=== PATIENT | female | born 1945 | race Hispanic/Latino ===

== ENCOUNTER 2019-08-31 05:40 | Day surgery (SDC) | payer OTHER, MEDICARE ==
[2019-08-29 12:36] VITALS: BP 175/82
[2019-08-29 12:50] LABS: APPEARANCE,URINE Clear (CLEAR); BASOPHILS % (AUTO) 0.9 % (0.0-5.0); BILIRUBIN,URINE Negative (NEGATIVE); COLOR,URINE Yellow (YELLOW); EOSINOPHILS % (AUTO) 3.7 % (0.0-8.0); GLUCOSE, URINE (UA) Negative (NEGATIVE); HEMATOCRIT 39.2 % (36-48); KETONES,URINE Negative (NEGATIVE); LEUKOCYTE ESTERASE ,URINE Negative (NEGATIVE); LYMPHOCYTES % (AUTO) 29.2 % (21.0-51.0); MEAN CORPUSCULAR HEMOGLOBIN 30.3 pg (27.0-33.0); MEAN CORPUSCULAR HGB CONC 34.1 g/dL (32.0-36.0); MEAN CORPUSCULAR VOLUME 88.7 fL (79-99); MONOCYTES % (AUTO) 7.3 % (3.0-13.0); NEUTROPHILS % (AUTO) 58.9 % (40.0-77.0); NITRATE,URINE Negative (NEGATIVE); OCCULT BLOOD,URINE Negative (NEGATIVE); PLATELET COUNT (AUTO) 199 K/uL (130-400); PROTEIN,URINE POS 2+ mg/dL (NEGATIVE); RED BLOOD CELL COUNT(AUTO) 4.42 MIL/uL (4.00-5.50); RED CELL DISTRIBUTION WIDTH 12.9 % (11.0-15.5); WHITE BLOOD COUNT (AUTO) 7.4 K/uL (4.8-10.8)
[2019-08-29 12:59] LABS: CREATININE 1.5 mg/dL (0.5-1.5); POTASSIUM 3.9 mmol/L (3.5-5.1)
[2019-08-29 13:01] LABS: INR 0.98 (0.85-1.15); PROTHROMBIN TIME 10.3 SEC (9.6-11.6)
[2019-08-29 13:07] LABS: BACTERIA,URINE None Seen /HPF (None Seen); RBC,URINE None Seen /HPF (0-1); SQUAMOUS EPITHELIAL CELL,UR Rare /HPF (0-2); WBC,URINE None Seen /HPF (0-1)
[2019-08-29 15:45] VITALS: BP 140/74
--- NOTE | 2019-08-30 10:40 | NUR ---
ABNORMAL LABS PAGED DR. VISH SALAZAR' [employer] OPERATOR TO REPORT CREAT 1.5, BUN 23. KRISTEL FROM [facility] CALLED BACK, STATED TO FAX ABNORMAL LABS. BMP RESULT FAXED TO [phone] PER KRISTEL. WAITING EMAIL MARKETER BACK FOR ORDERS.
--- NOTE | 2019-08-30 11:07 | NUR ---
ORDERS ORDERS RECEIVED FROM DR. VISH SALAZAR FUR BUYER. START NS AT 100ML/HR ON ARRIVAL, ENCOURAGE FLUIDS TODAY. WILL CALL PT FOR INSTRUCTIONS
[2019-08-31] VITALS (11 sets, daily range): BP systolic 120–171; BP diastolic 52–76
[~2019-08-31] VITALS: Ht 162.6 cm; Wt 83.7 kg
[~2019-08-31 05:40] MED LIST: AMIO200T5 PO; AMLO10TA7 PO; ASPI-1181 PO; CLON0.1T PO; CLOP75TA32 PO; FLUT1AER IH; FURO40TA5 PO; LOVA20TA3 PO; METO-391 PO; NITR0.4T50 SL; OLME40TA18 PO; POTA10TA14 PO; SODIUM CHLORIDE 0.9% 1000ML 1,000 ML IV SCH; TRAM50TA4 PO
--- NOTE | 2019-08-31 06:15 | NUR ---
PRE-PROCEDURE RECEIVED FROM HOME VIA AMBULATING ACCOMPANIED BY DAUGHTER IN LAW FOR SCHEDULED LHC. AWAKE IN NO ACUTE DISTRESS. DENIES PAIN OR DIFFICULTY BREATHING.CONNECTED TO CONTINUOUS CARDIOPULMONARY MONITORING. SIDE RAILS UP X2, BED IN LOWEST POSITION, AND CALL LIGHT W/IN REACH. ASSESSMENT PER PT HAS A BROKEN RIGHT FIRST TOE.
--- NOTE | 2019-08-31 08:45 | NUR ---
PROCEDURE TRANSFERRED TO [facility] LIGHT VIA BED BY NIKOLE FOUNTAIN RN FOR [facility].
[2019-08-31] MEDS ORDERED: IOHEXOL 350 MG/ML 100ML INFUS..BTL IV ONE (08:46)
[2019-08-31] MEDS ORDERED: IOHEXOL-350 50ML VIAL IV ONE (08:46)
[2019-08-31] MEDS ORDERED: NITROGLYCERIN 5 MG/ML 10 ML VIAL IV ONE (08:47)
[2019-08-31] MEDS ORDERED: MIDAZOLAM HCL 1 MG/ML 2ML VIAL ONE (08:47)
[2019-08-31] MEDS ORDERED: LIDOCAINE HCL 2% 20ML ONE (08:47)
[2019-08-31] MEDS ORDERED: BIVALIRUDIN 250 MG/VIAL IV ONE (09:46)
[2019-08-31] MEDS ORDERED: ASPIRIN 325MG EC TAB 325 MG TABLET.DR PO ONE (09:55)
[2019-08-31] MEDS ORDERED: PRASUGREL HCL 10 MG TABLET ONE (09:55)
[2019-08-31] MEDS ORDERED: NITROGLYCERIN 4.1 GM SPRAY TL ONE (10:07)
[2019-08-31] MEDS ORDERED: SODIUM CHLORIDE 0.9% 1000ML 1,000 ML IV SCH (10:45)
[2019-08-31] MEDS ORDERED: CLONIDINE HCL 0.1 MG TABLET PO PRN (10:45)
[2019-08-31] MEDS ORDERED: PRAS10TA6 PO (10:49)
--- NOTE | 2019-08-31 11:05 | NUR ---
POST-PROCEDURE RECEIVED FROM [facility] [employer] VIA BED BY NATHANIEL MALIK RN VIA BED S/P [facility] WITH PCTA. AWAKE IN NO ACUTE DISTRESS. DENIES CHEST PAIN OR SOA. CONNECTED TO CONTINUOUS CARDIOPULMONARY MONITORING. EDUCATED ON IMPORTANCE OF KEEPING RIGHT LEG STRAIGHT AND HEAD FLAT IN [place]. PT VERBALIZED UNDERSTANDING. NS INFUSING AT 100ML/HR TO LEFT HAND/SITE W/O ERYTHEMA OR EDEMA. SIDE RAILS UP X2, BED IN LOWEST POSITION, AND CALL LIGHT W/IN REACH.
--- NOTE | 2019-08-31 11:20 | NUR ---
MD DR. WAHL IN TO SEE PATIENT. SPOKE WITH SON AND PT IN DETAIL REGARDING PROCEDURE AND MEDICATION CHANGES. BOTH VERBALIZED UNDERSTANDING.
--- NOTE | 2019-08-31 15:06 | NUR ---
REPORT BEDSIDE REPORT GIVEN TO BONIFACIO, USING SBAR. CATH SITE W/O SIGNS OF BLEEDING; SITE SOFT,NON-TENDER, DRESSING CD&I.
--- NOTE | 2019-08-31 18:00 | NUR ---
dc dc instructions given to patient/ daughter in law, instructed on new med regimen, and to stop plavix, instructed to continue rest of home meds. right groin with dressing dry and intact, small bruise noted to site but no hematoma or bleeding to site. patient denied any chest pain , sob or any discomforts.
--- NOTE | 2019-08-31 18:15 | NUR ---
dc pt dc home via wc,no distress noted. denied any pain or discomforts. patient accompanied by daughter in law. right groin site with no bleeding or hematoma
[2019-09-01] MEDS ORDERED: PRASUGREL HCL 10 MG TABLET PO SCH (09:00)
== END 2019-08-31 18:15 | disposition home or self-care (01) ==
LOC: DAH 05:40
PROVIDERS: ATTEND Internal Medicine Cardiovascular Disease
DX: I25.5 Ischemic cardiomyopathy (principal); R94.39 Abnormal result of other cardiovascular function study; I25.118 Atherosclerotic heart disease of native coronary artery with other forms of angina pectoris; I12.9 Hypertensive chronic kidney disease with stage 1 through stage 4 chronic kidney disease, or unspecified chronic kidney disease; E11.22 Type 2 diabetes mellitus with diabetic chronic kidney disease; N18.3 Chronic kidney disease, stage 3 (moderate); E78.5 Hyperlipidemia, unspecified; E66.9 Obesity, unspecified; Z68.31 Body mass index [BMI] 31.0-31.9, adult; Z79.82 Long term (current) use of aspirin; Z79.899 Other long term (current) drug therapy; Z87.01 Personal history of pneumonia (recurrent); Z82.49 Family history of ischemic heart disease and other diseases of the circulatory system; Z83.3 Family history of diabetes mellitus
CPT/HCPCS: 36415 ×2; 71045; 80048; 81001; 82948 ×3; 83880; 85025; 85610; 85730; 93005; 93458; A4215; A4216; A4221; A4222; A4223 ×2; A4606; C1725; C1760; C1769; C1876; C1887; C1894 ×2; C9600; J0583; J1644; J3490 ×2; J7030; Q9965 ×2; Q9967 ×2; J2250